=== PATIENT | male | born 1935 | race Caucasian/White ===

== ENCOUNTER 2017-10-09 12:08 | Day surgery (SDC) | payer OTHER ==
[~2017-10-09] VITALS: Ht 167.6 cm; Wt 75.3 kg
[~2017-10-09 12:08] MED LIST: ATORVASTATIN CA80 MG PO; COUMADIN2.5 MG PO; FLOMAX0.4 MG PO; LOPRESSOR25 MG PO; NORVASC10 MG PO; PERCOCET 5/31 TABLET PO; ZOFRAN ODT8 MG PO; ZOFRAN4 MG PO
[2017-10-09 12:58] VITALS: BP 153/89
[2017-10-09 16:52] VITALS: BP 137/86
[2017-10-09 17:30] VITALS: BP 141/80
== END 2017-10-09 17:58 | disposition home or self-care (01) ==
LOC: SDC 12:08
PROC: 01NB0ZZ Release Lumbar Nerve, Open Approach (ICD-10-PCS; principal; 2017-10-09)
DX: M48.062 Spinal stenosis, lumbar region with neurogenic claudication (principal); M47.816 Spondylosis without myelopathy or radiculopathy, lumbar region; M51.36 Other intervertebral disc degeneration, lumbar region; I25.2 Old myocardial infarction; Z79.01 Long term (current) use of anticoagulants
CPT/HCPCS: 72020; 76000; J0690; J2405; J2710; J2930; J3010; J7643; S0020